=== PATIENT | female | born 2000 | race Caucasian/White ===

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

== ENCOUNTER 2021-09-26 09:58 | Emergency (ER) | payer OTHER ==
[~2021-09-26] VITALS: Ht 185.4 cm; Wt 50.0 kg
[~2021-09-26 09:58] MED LIST changes: +EQL IRON SUPPL325 M1 PO; +NITROFURANTN100 M2 PO; +PRENATAL1 TA1 PO
[2021-09-26 11:14] LABS: URINE BLOOD DIPSTICK NEGATIVE (NEGATIVE); URINE COLOR YELLOW; URINE GLUCOSE - DIPSTICK NEGATIVE (NEGATIVE); URINE KETONE 15 mg/dL (NEGATIVE); URINE LEUK ESTERASE NEGATIVE (NEGATIVE); URINE PROTEIN - DIPSTICK 30 mg/dL (NEG-TRACE); URINE UROBILINOGEN - DIPSTICK 0.2 E.U./dL (0.2)
[2021-09-26 11:29] LABS: URINE BILIRUBIN - DIPSTICK NEGATIVE (NEGATIVE); URINE NITRITE - DIPSTICK NEGATIVE (Negative)
[2021-09-26 11:31] LABS: URINE BACTERIA MODERATE hpf; URINE MUCUS MODERATE hpf (NONE-FEW); URINE SQUAMOUS EPITHELIAL CELL MANY EPI/hpf (0-FEW)
[2021-09-26 11:32] LABS: URINE RBC 0-2 RBC/hpf (0-5)
[2021-09-26] MEDS ORDERED: BACTRIM DS1 TAB PO (12:34)
[2021-09-26] MEDS ORDERED: ZOFRAN4 MG/TAB PO (12:34)
[2021-09-26 12:45] VITALS: BP 106/57
== END 2021-09-26 12:45 | disposition home or self-care (01) ==
LOC: ED 09:58
DX: N39.0 Urinary tract infection, site not specified (principal); R51.9 Headache, unspecified; R11.10 Vomiting, unspecified; R19.7 Diarrhea, unspecified; Z20.822 Contact with and (suspected) exposure to COVID-19

== ENCOUNTER 2021-10-24 20:29 | Emergency (ER) | payer OTHER ==
[~2021-10-24 20:29] MED LIST changes: +BACTRIM DS1 TAB PO; +ZOFRAN4 MG/TAB PO
== END 2021-10-24 22:51 | disposition left against medical advice (07) | DRG 951 ==
LOC: ED 20:29 → LWOBS 22:51
DX: Z53.21 Procedure and treatment not carried out due to patient leaving prior to being seen by health care provider (principal)

== ENCOUNTER 2022-07-04 10:31 | Emergency (ER) | payer OTHER ==
[~2022-07-04] VITALS: Ht 188 cm; Wt 65.7 kg
[2022-07-04] VITALS (7 sets, daily range): BP systolic 112–125; BP diastolic 63–102
[2022-07-04 11:37] LABS: ALBUMIN 4.5 g/dL (3.2-5.0); ALKALINE PHOSPHATASE 64 u/l (38-126); ANION GAP 17 (6-22 (CALC)); BUN 8 mg/dL (7-17); BUN/CREATININE RATIO 11 (12-20 (CALC)); CARBON DIOXIDE 22 mmol/l (22-30); CHLORIDE 98 mmol/l (95-108); CREATININE 0.7 mg/dL (0.5-1.0); GFR FOR AFR.AMER. > 60 ML/MIN (>=60 (CALC)); GFR OTHER RACES > 60 ML/MIN (>=60 (CALC)); POTASSIUM 3.7 mmol/l (3.5-5.1); SGOT/AST 21 u/l (14-36); SODIUM 134 mmol/l (137-146); TOTAL PROTEIN 8.5 g/dL (6.3-8.2)
[2022-07-04 11:38] LABS: BILIRUBIN, TOTAL 0.8 mg/dL (0.0-1.4)
[2022-07-04 11:39] LABS: HEMOGLOBIN 12.5 g/dl (12.0-16.0); IMMATURE GRANULOCYTES 0.3 % (0.0-5.0); MEAN CORPUSCULAR HGB 28.6 pG CALC (26.0-32.0); MEAN CORPUSCULAR HGB CONC 32.9 g/dL CAL (32.0-36.0); NEUT# 17.26 thou/uL (2.00-7.15); RED BLOOD COUNT 4.37 mill/uL (4.20-5.60); RED CELL DISTRI WIDTH 13.6 % (11.5-15.5)
[2022-07-04 13:50] LABS: URINE BILIRUBIN - DIPSTICK NEGATIVE (NEGATIVE); URINE BLOOD DIPSTICK NEGATIVE (NEGATIVE); URINE COLOR YELLOW; URINE GLUCOSE - DIPSTICK NEGATIVE (NEGATIVE); URINE KETONE 15 mg/dL (NEGATIVE); URINE LEUK ESTERASE NEGATIVE (NEGATIVE); URINE PH 6.5 (4.5-8.0); URINE PROTEIN - DIPSTICK NEGATIVE (NEG-TRACE); URINE SPECIFIC GRAVITY <=1.005; URINE UROBILINOGEN - DIPSTICK 0.2 E.U./dL (0.2)
[2022-07-04 13:57] LABS: URINE NITRITE - DIPSTICK NEGATIVE (Negative)
[2022-07-04] MEDS ORDERED: AMOX/K CLAV875 M1 PO (14:10)
[2022-07-04] MEDS ORDERED: ZPAK PO (14:10)
== END 2022-07-04 15:00 | disposition home or self-care (01) ==
LOC: ED 10:31
PROVIDERS: Family Medicine
DX: J18.9 Pneumonia, unspecified organism (principal); Z88.1 Allergy status to other antibiotic agents; Z20.822 Contact with and (suspected) exposure to COVID-19
CPT/HCPCS: Q9967

== ENCOUNTER 2022-09-07 12:09 | Emergency (ER) | payer OTHER ==
[~2022-09-07] VITALS: Ht 188 cm; Wt 68.2 kg
[~2022-09-07 12:09] MED LIST changes: +AMOX/K CLAV875 M1 PO
[2022-09-07] MEDS ORDERED: PREDNISONE50 MG PO (13:35)
[2022-09-07] MEDS ORDERED: DOXY-CAPS100 MG PO (13:35)
[2022-09-07] MEDS ORDERED: ALL DAY10 MG PO (13:35)
[2022-09-07 13:55] VITALS: BP 128/86
== END 2022-09-07 13:55 | disposition home or self-care (01) ==
LOC: ED 12:09
DX: T63.441A Toxic effect of venom of bees, accidental (unintentional), initial encounter (principal); L03.115 Cellulitis of right lower limb